=== PATIENT | male | born 1970 | race Caucasian/White ===

== ENCOUNTER 2020-06-11 13:58 | Emergency (ER) | payer MEDICARE, MEDICAID, SELFPAY ==
[2020-06-11 14:01] VITALS: BP 157/100; PULSE 70; RESP 18; TEMP 36.8; O2SAT 97
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
[2020-06-11 14:54] VITALS: BP 126/91; PULSE 72; RESP 20; O2SAT 96
== END 2020-06-11 14:56 | disposition home or self-care (01) ==
PROVIDERS: Emergency Provider Emergency Medicine
DX: R21 Rash and other nonspecific skin eruption (principal); D22.72 Melanocytic nevi of left lower limb, including hip
CPT/HCPCS: 99283